=== PATIENT | male | born 1965 | race Caucasian/White ===

== ENCOUNTER 2021-07-04 08:59 | Emergency (ER) | payer OTHER ==
[~2021-07-04] VITALS: Ht 172.7 cm; Wt 81.6 kg
[2021-07-04 09:16] VITALS: BP 111/78
--- NOTE | 2021-07-04 09:58 | NUR ---
Patient given written and verbal discharge instructions. Patient verbalizes understanding of instructions. Patient is ambulatory with steady gait. Refuses offer of detention placement. Patient given list of available shelters in surrounding area.
== END 2021-07-04 09:59 | disposition home or self-care (01) ==
LOC: ER 09:05
DX: G89.29 Other chronic pain (principal); M54.9 Dorsalgia, unspecified; J45.909 Unspecified asthma, uncomplicated; Z90.89 Acquired absence of other organs; Z88.0 Allergy status to penicillin; Z59.00 Homelessness unspecified; Z87.891 Personal history of nicotine dependence

== ENCOUNTER 2021-07-06 15:32 | Emergency (ER) | payer OTHER ==
[~2021-07-06] VITALS: Ht 180.3 cm; Wt 79.4 kg
--- NOTE | 2021-07-06 15:38 | NUR ---
To ER bed 14, [id number], from street, wandering around, "hungry", aaox3, breathing even and non labored, connected to monitor, made comfortable, food given
[2021-07-06 16:11] LABS: BASOPHILS # (AUTO) 0.2 K/uL (0.0-0.2); BASOPHILS % (AUTO) 2.8 % (0.0-2.0); HEMATOCRIT 37 % (39-51); HEMOGLOBIN 12.3 g/dL (13.5-17.5); LYMPHOCYTES # (AUTO) 1.2 K/uL (0.8-4.8); LYMPHOCYTES % (AUTO) 15.3 % (20.0-44.0); MEAN CORPUSCULAR HGB CONC 33 g/dl (31.0-36.0); MEAN CORPUSCULAR VOLUME 98 fL (80-96); MONOCYTES # (AUTO) 0.5 K/uL (0.1-1.30); MONOCYTES % (AUTO) 6.2 % (2.0-12.0); NEUTROPHILS # (AUTO) 5.9 K/uL (1.8-8.9); NEUTROPHILS % (AUTO) 74.7 % (43.0-81.0); PLATELET COUNT (AUTO) 255 K/uL (150-450); RED BLOOD CELL COUNT(AUTO) 3.82 MIL/uL (4.5-6.0); WHITE BLOOD COUNT (AUTO) 7.9 K/uL (4.3-11.0)
[2021-07-06 16:24] LABS: CALCIUM, SERUM 8.3 mg/dL (8.5-10.1); CARBON DIOXIDE 27 mmol/L (21-32); CHLORIDE 106 mmol/L (98-107); GLUCOSE 93 mg/dL (74-106); POTASSIUM 3.6 mmol/L (3.5-5.1); SODIUM SERUM 144 mmol/L (136-145); UREA NITROGEN, BLOOD 14 mg/dL (7-18)
[2021-07-06] MEDS ORDERED: LORAZEPAM INJ 2 MG/ML VIAL IM ONE (16:30)
[2021-07-06] MEDS ORDERED: LORAZEPAM INJ 2 MG/ML VIAL ONE (16:33)
[2021-07-06 16:37] LABS: ALANINE AMINOTRANSFERASE 23 U/L (12-78); ALBUMIN 3.6 g/dL (3.4-5.0); ALKALINE PHOSPHATASE 57 U/L (46-116); ASPARTATE AMINOTRANSFERASE 15 U/L (15-37); BILIRUBIN,DIRECT 0.2 mg/dL (0.0-0.2); BILIRUBIN,TOTAL 0.6 mg/dL (0.2-1.0); TOTAL PROTEIN, SERUM 7.2 g/dL (6.4-8.2)
[2021-07-06 16:40] LABS: ACETAMINOPHEN < 0 ug/ml (10-30); ALCOHOL, BLOOD < 3 mg/dL (0-0)
[2021-07-06 18:57] VITALS: BP 118/77
--- NOTE | 2021-07-06 18:58 | NUR ---
Patient given written and verbal discharge instructions. Patient verbalizes understanding of instructions. Patient is ambulatory with steady gait. Refuses offer of retirement placement. Patient given list of available shelters in surrounding area.
== END 2021-07-06 18:58 | disposition home or self-care (01) ==
LOC: ER 15:36
DX: R07.89 Other chest pain (principal); Z76.5 Malingerer [conscious simulation]; J45.909 Unspecified asthma, uncomplicated; Z90.89 Acquired absence of other organs; Z88.0 Allergy status to penicillin; Z87.891 Personal history of nicotine dependence; Z59.00 Homelessness unspecified
CPT/HCPCS: 36415; 80048; 80076; 80143; 80320; 84484; 85025; 93005; 96372; 99284; J2060; G0480

== ENCOUNTER 2021-07-18 13:31 | Emergency (ER) | payer OTHER ==
[~2021-07-18] VITALS: Ht 172.7 cm; Wt 82.6 kg
[2021-07-18 14:04] VITALS: BP 133/84
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
--- NOTE | 2021-07-18 15:08 | NUR ---
X-RAY TECH AT THE BEDSIDE
[2021-07-18] MEDS ORDERED: IBUP-1953 PO (18:19)
--- NOTE | 2021-07-18 18:26 | NUR ---
Patient given written and verbal discharge instructions. Patient verbalizes understanding of instructions. Patient is ambulatory with steady gait. Refuses offer of [facility] placement. Patient given list of available shelters in surrounding area.
== END 2021-07-18 18:28 | disposition home or self-care (01) ==
LOC: ER 13:42
DX: M43.16 Spondylolisthesis, lumbar region (principal); J45.909 Unspecified asthma, uncomplicated; F17.210 Nicotine dependence, cigarettes, uncomplicated; Z90.89 Acquired absence of other organs; Z88.0 Allergy status to penicillin; Z59.00 Homelessness unspecified; Y08.89XA Assault by other specified means, initial encounter; Y93.89 Activity, other specified; Y92.89 Other specified places as the place of occurrence of the external cause; Y99.8 Other external cause status
CPT/HCPCS: 71100-TC; 72074-TC; 72110-TC

== ENCOUNTER 2021-11-18 15:42 | Emergency (ER) | payer OTHER ==
[~2021-11-18] VITALS: Ht 172.7 cm; Wt 81.6 kg
[~2021-11-18 15:42] MED LIST: IBUP-1953 PO
[2021-11-18 15:54] VITALS: BP 117/58
[2021-11-18] MEDS ORDERED: predniSONE 20 MG TABLET PO ONE (16:30)
[2021-11-18] MEDS ORDERED: IPRATROPIUM NEB FS 0.5 MG/2.5 ML AMPUL.NEB NEB ONE (16:30)
[2021-11-18] MEDS ORDERED: ALBUTEROL FS 2.5 MG/3 ML VIAL.NEB NEB ONE (16:30)
[2021-11-18] MEDS ORDERED: predniSONE 20 MG TABLET ONE (16:36)
[2021-11-18] MEDS ORDERED: ALBUTEROL FS 2.5 MG/3 ML VIAL.NEB ONE (16:41)
[2021-11-18] MEDS ORDERED: IPRATROPIUM NEB FS 0.5 MG/2.5 ML AMPUL.NEB ONE (16:41)
--- NOTE | 2021-11-18 17:00 | NUR ---
verbalized he feels better after breathing treatment
--- NOTE | 2021-11-18 17:10 | NUR ---
patient said for no reason "you guys have a kodak mouse operation here" and walked out the door
== END 2021-11-18 17:19 | disposition left against medical advice (07) ==
LOC: ER 15:50
DX: J45.901 Unspecified asthma with (acute) exacerbation (principal); F17.200 Nicotine dependence, unspecified, uncomplicated; Z93.0 Tracheostomy status; Z90.49 Acquired absence of other specified parts of digestive tract; Z88.0 Allergy status to penicillin; Z59.00 Homelessness unspecified; Z79.1 Long term (current) use of non-steroidal anti-inflammatories (NSAID)
CPT/HCPCS: 94640; 99283; 99406; J7512

== ENCOUNTER 2021-12-22 09:27 | Emergency (ER) | payer OTHER ==
[~2021-12-22] VITALS: Ht 172.7 cm; Wt 79.8 kg
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
--- NOTE | 2021-12-22 09:42 | NUR ---
called security for wanding.
[2021-12-22 10:34] VITALS: BP 121/68
--- NOTE | 2021-12-22 10:34 | NUR ---
Patient discharged to home in stable condition. Written and verbal after care instructions given. Patient verbalizes understanding of instruction. Patient provided with a bus pass.
== END 2021-12-22 10:35 | disposition home or self-care (01) ==
LOC: ER 09:34
DX: R46.1 Bizarre personal appearance (principal); J45.909 Unspecified asthma, uncomplicated; Z59.00 Homelessness unspecified; Z90.89 Acquired absence of other organs; Z93.0 Tracheostomy status; Z88.0 Allergy status to penicillin; Z79.1 Long term (current) use of non-steroidal anti-inflammatories (NSAID)

== ENCOUNTER 2021-12-24 10:24 | Emergency (ER) | payer OTHER ==
[~2021-12-24] VITALS: Ht 172.7 cm; Wt 77.1 kg
--- NOTE | 2021-12-24 10:27 | NUR ---
[id number] COUNT INCLUDES THE [facility] C/O BILATERAL FOOT PAIN D/T WOUNDS x 6DAYS, PS 04/06.
[2021-12-24] MEDS ORDERED: BACITRACIN ZINC OINT PACKET 1 EA PACKET TP ONE (11:00)
[2021-12-24] MEDS ORDERED: IBUP-1955 PO (11:36)
[2021-12-24] MEDS ORDERED: NEOM28.36 TP (11:36)
--- NOTE | 2021-12-24 11:59 | NUR ---
Patient discharged to home in stable condition. Written and verbal after care instructions given. Patient verbalizes understanding of instruction.
[2021-12-24 12:00] VITALS: BP 121/87
== END 2021-12-24 12:01 | disposition home or self-care (01) ==
LOC: ER 10:29
DX: M79.671 Pain in right foot (principal); M79.672 Pain in left foot; F17.210 Nicotine dependence, cigarettes, uncomplicated; I10 Essential (primary) hypertension; J45.909 Unspecified asthma, uncomplicated; F20.0 Paranoid schizophrenia; Z59.00 Homelessness unspecified; Z90.89 Acquired absence of other organs; Z88.0 Allergy status to penicillin; Z88.5 Allergy status to narcotic agent

== ENCOUNTER 2021-12-26 19:57 | Emergency (ER) | payer OTHER ==
[~2021-12-26] VITALS: Ht 175.3 cm; Wt 77.1 kg
[~2021-12-26 19:57] MED LIST changes: +IBUP-1955 PO; +NEOM28.36 TP
[2021-12-26] MEDS ORDERED: FLUORESCEIN SODIUM OPHTH 1 EA STRIP ONE (20:27)
[2021-12-26] MEDS ORDERED: FLUORESCEIN SODIUM OPHTH 1 EA STRIP OP ONE (20:30)
[2021-12-26 23:15] LABS: BASOPHILS % (AUTO) 0.6 % (0.0-2.0); EOSINOPHILS % (AUTO) 0.2 % (0.0-6.0); HEMATOCRIT 41 % (39-51); HEMOGLOBIN 13.6 g/dL (13.5-17.5); LYMPHOCYTES # (AUTO) 0.1 K/uL (0.8-4.8); LYMPHOCYTES % (AUTO) 2.6 % (20.0-44.0); MEAN CORPUSCULAR HGB CONC 34 g/dl (31.0-36.0); MEAN CORPUSCULAR VOLUME 90 fL (80-96); MONOCYTES # (AUTO) 0.1 K/uL (0.1-1.30); MONOCYTES % (AUTO) 3.2 % (2.0-12.0); NEUTROPHILS # (AUTO) 4.1 K/uL (1.8-8.9); NEUTROPHILS % (AUTO) 93.4 % (43.0-81.0); PLATELET COUNT (AUTO) 170 K/uL (150-450); WHITE BLOOD COUNT (AUTO) 4.4 K/uL (4.3-11.0)
[2021-12-26 23:39] LABS: ALCOHOL, BLOOD < 3 mg/dL (0-0); CALCIUM, SERUM 8.2 mg/dL (8.5-10.1); CARBON DIOXIDE 29 mmol/L (21-32); CHLORIDE 103 mmol/L (98-107); GLUCOSE 108 mg/dL (74-106); POTASSIUM 3.8 mmol/L (3.5-5.1); SODIUM SERUM 137 mmol/L (136-145); UREA NITROGEN, BLOOD 14 mg/dL (7-18)
[2021-12-27 08:55] VITALS: BP 100/59
== END 2021-12-27 08:55 | disposition left against medical advice (07) ==
LOC: ER 19:59
DX: S02.411A LeFort I fracture, initial encounter for closed fracture (principal); S06.9X0A Unspecified intracranial injury without loss of consciousness, initial encounter; S02.19XA Other fracture of base of skull, initial encounter for closed fracture; S02.40FA Zygomatic fracture, left side, initial encounter for closed fracture; Y04.0XXA Assault by unarmed brawl or fight, initial encounter; Y92.481 Parking lot as the place of occurrence of the external cause; F20.0 Paranoid schizophrenia; Z59.02 Unsheltered homelessness; J45.909 Unspecified asthma, uncomplicated; F17.210 Nicotine dependence, cigarettes, uncomplicated; M50.31 Other cervical disc degeneration, high cervical region; H11.421 Conjunctival edema, right eye; Z53.20 Procedure and treatment not carried out because of patient's decision for unspecified reasons; Z20.822 Contact with and (suspected) exposure to COVID-19; I10 Essential (primary) hypertension; Z88.0 Allergy status to penicillin; Z88.6 Allergy status to analgesic agent
CPT/HCPCS: 36415; 70450; 70486; 71045; 72125; 80048; 80320; 85025; 85730; 87426; 99285; C9803; G0480

== ENCOUNTER 2021-12-28 08:36 | Emergency (ER) | payer OTHER ==
[~2021-12-28] VITALS: Ht 175.3 cm; Wt 77.1 kg
[2021-12-28] MEDS ORDERED: ERYTHROMYCIN BASE OPHTH 3.5 GM TUBE OP STA (08:56)
[2021-12-28] MEDS ORDERED: IV NS 0.9% 1,000 ML BAG IV ONE (09:00)
[2021-12-28] MEDS ORDERED: ACETAMINOPHEN ES 500 MG TABLET PO ONE (09:00)
[2021-12-28] MEDS ORDERED: CEFEPIME 1 GM in IV D5W 50 ML IV ONE (09:00)
--- NOTE | 2021-12-28 09:08 | NUR ---
CALLED [facility] TRANSFER [facility] AND WAS NOTIFIED THAT THE HOSPITAL IS AT CAPACITY AND NOT ABLE TO TRANSFER THE PT TO THEIR FACILITY AT THIS TIME
--- NOTE | 2021-12-28 09:26 | NUR ---
CALLED [facility] AND WAS NOTIFIED THE FACILITIES IS AT CAPACITY
--- NOTE | 2021-12-28 09:26 | NUR ---
CALLED [facility] AND WAS NOTIFIED OF PT STATUS AND CLINICALS. ALSO FAXED CLINICALS TO FACILITY TO BE FUTHER REVIEWED. AWAITING A CALL BACK
[2021-12-28 09:36] LABS: CALCIUM, SERUM 8.4 mg/dL (8.5-10.1); CREATININE 0.9 mg/dL (0.6-1.3); POTASSIUM 3.3 mmol/L (3.5-5.1)
[2021-12-28 09:42] LABS: ALBUMIN 3.5 g/dL (3.4-5.0); BILIRUBIN,DIRECT 0.2 mg/dL (0.0-0.2); BILIRUBIN,TOTAL 0.9 mg/dL (0.2-1.0); TOTAL PROTEIN, SERUM 6.9 g/dL (6.4-8.2)
[2021-12-28 09:43] LABS: BASOPHILS % (AUTO) 0.4 % (0.0-2.0); EOSINOPHILS % (AUTO) 0.7 % (0.0-6.0); HEMATOCRIT 36 % (39-51); HEMOGLOBIN 12.3 g/dL (13.5-17.5); LYMPHOCYTES # (AUTO) 0.6 K/uL (0.8-4.8); LYMPHOCYTES % (AUTO) 16.2 % (20.0-44.0); MEAN CORPUSCULAR HGB CONC 34 g/dl (31.0-36.0); MEAN CORPUSCULAR VOLUME 89 fL (80-96); MONOCYTES # (AUTO) 0.4 K/uL (0.1-1.30); MONOCYTES % (AUTO) 11.4 % (2.0-12.0); NEUTROPHILS # (AUTO) 2.5 K/uL (1.8-8.9); NEUTROPHILS % (AUTO) 71.3 % (43.0-81.0); PLATELET COUNT (AUTO) 143 K/uL (150-450); RED BLOOD CELL COUNT(AUTO) 4.09 MIL/uL (4.5-6.0); WHITE BLOOD COUNT (AUTO) 3.5 K/uL (4.3-11.0)
[2021-12-28] MEDS ORDERED: ACETAMINOPHEN ES 500 MG TABLET ONE (10:32)
[2021-12-28] MEDS ORDERED: ERYTHROMYCIN BASE OPHTH 3.5 GM TUBE ONE (10:59)
[2021-12-28] MEDS ORDERED: VANCOMYCIN 1 GM in IV D5W 250 ML IV ONE (11:00)
--- NOTE | 2021-12-28 11:05 | NUR ---
SEEN THIS 56YO/MALE PATIENT. PATIENT CAME SINCE 0850H BIB RA 860 FOR WORSENING FACIAL SWELLING, LEFT AMA YESTERDAY, REFUSED TO WAIT. FOR ACCEPTANCE FOR HIGHER LEVEL OF CARE TRANSFER. PATIENT IS ALERT, ORIENTED X3. WITH FACIAL SWELLING. WITH IV CANNULA G20 ON RIGHT HAND RUNNING IS 0.9NS [place] AND VANCOMYCIN ANTIBIOTIC. PER RN TERENCE, EYE OINTMENT ALREADY APPLIED TO EYES.
--- NOTE | 2021-12-28 11:29 | NUR ---
CALLED [facility] AND WAS FAXED PT CLINICALS AT [phone]. AWAITING FEEDBACK AFTER CLINICAL PACKET HAS BEEN REVIEWED
--- NOTE | 2021-12-28 12:14 | NUR ---
URINE SPECIMEN SENT TO LAB
--- NOTE | 2021-12-28 12:30 | NUR ---
LUNCH SERVED WITH APPROVAL FROM DR LLOYD
--- NOTE | 2021-12-28 18:29 | NUR ---
COVID ANTIGEN SWAB SENT TO LAB
--- NOTE | 2021-12-28 21:20 | NUR ---
SPOKE WITH BAYRON AT [facility] ER. REQUESTED TO FAX OVER CLINICALS TO [phone]
--- NOTE | 2021-12-28 21:49 | NUR ---
[facility] CALLED BACK TO INFORM THAT THEY WONT BE ABLE TO ACCEPT THE PATIENT BECAUSE THEY DONT HAVE A MAXILLOFACIAL SURGEON.
--- NOTE | 2021-12-28 22:50 | NUR ---
CALLED [facility] AND SPOKE WITH BRENT FROM [facility] A HIGHER LEVEL OF CARE. UNABLE TO TAKE PT D/T HOSPITAL IS AT CAPACITY
--- NOTE | 2021-12-29 02:34 | NUR ---
CALLED [facility] TRANSFER [facility]ENTER TO REQUEST HIGHER LEVEL OF CARE. HOSPITAL IS AT CAPACITY AND WONT BE ABLE TO TAKE THE PATIENT.
--- NOTE | 2021-12-29 02:58 | NUR ---
CALLED [facility] AND SPOKE WITH TRAUMA SURGEON, DR. SHI BUT UNABLE TO TAKE PT.
--- NOTE | 2021-12-29 05:06 | NUR ---
PT IN BED WATCHING TV. PT PROVIDED WITH CARE AND NEED ATTENDED.
[2021-12-29] MEDS ORDERED: IV LR 1000 ML 1,000 ML IV ONE (08:00)
[2021-12-29] MEDS ORDERED: VANCOMYCIN 1 GM in IV D5W 250 ML IV ONE (08:00)
[2021-12-29] MEDS ORDERED: CEFEPIME 2 GM in IV D5W 100 ML IV SCH (09:00)
[2021-12-29] MEDS ORDERED: CEFEPIME 2 GM in IV D5W 100 ML IV ONE (09:28)
--- NOTE | 2021-12-29 11:43 | NUR ---
CALLED [facility] [phone] PAMELA WILL FAX OVER FACE SHEET. [phone]
--- NOTE | 2021-12-29 11:59 | NUR ---
CALLED [facility] [phone] LEFT .
[2021-12-29] MEDS ORDERED: ERYTHROMYCIN BASE OPHTH 3.5 GM TUBE OP SCH ×2 (12:00→18:23)
--- NOTE | 2021-12-29 12:23 | NUR ---
[facility] CALLED [facility] NO CAPACITY AT THIS TIME.
--- NOTE | 2021-12-29 12:26 | NUR ---
CALLED [facility] [phone]
--- NOTE | 2021-12-29 13:20 | NUR ---
CALLED [facility] ER [phone] TRAUMA DRGema ASKED TO BE CALLED BACK IN 15 MINS.
--- NOTE | 2021-12-29 14:00 | NUR ---
EYE OINTMENT APPLIED TO BOTH EYES
[2021-12-29] MEDS ORDERED: ERYTHROMYCIN BASE OPHTH 3.5 GM TUBE ONE (14:11)
--- NOTE | 2021-12-29 16:49 | NUR ---
CALLED [facility] SPOKE WITH DEB. [facility] CLINICALS TO [phone]
--- NOTE | 2021-12-29 17:01 | NUR ---
CALLED [facility] DR. PLEITEZ [phone] FROM [facility] SPEAKING WITH DR. LLOYD
--- NOTE | 2021-12-29 17:08 | NUR ---
CALLED [facility] [phone] [facility] [address] PATTERSON ACCEPTED. CHARGE NURSE MANUEL HELMS GETTING REPORT FROM SHEYLA TORRES.
--- NOTE | 2021-12-29 17:35 | NUR ---
[facility] CALLED FOR TRANSPORT ETA 90 MINS PER KALPES[facility].
--- NOTE | 2021-12-29 17:56 | NUR ---
REPORT GIVEN TO SHEYLA JACKSON AT [facility].
[2021-12-29 19:30] VITALS: BP 110/75
--- NOTE | 2021-12-29 19:30 | NUR ---
REPORT GIVEN TO [facility]. PATIENT WILL BE TRANSFERING TO [facility].
--- NOTE | 2021-12-29 19:30 | NUR ---
PT PICKED UP BY [facility]. ALL BELONGINGS TRANSPORTED WITH PATIENT. V/S WNL.
--- NOTE | 2022-01-10 10:36 | NUR ---
ADDENDUM 1000ML NORMAL SALINE GIVEN AT 1041 ON R HAND 20G END TIME 1141.
== END 2021-12-29 19:43 | disposition short-term general hospital (02) ==
LOC: ER 08:39
DX: S02.411A LeFort I fracture, initial encounter for closed fracture (principal); Y04.2XXA Assault by strike against or bumped into by another person, initial encounter; Y92.89 Other specified places as the place of occurrence of the external cause; H11.31 Conjunctival hemorrhage, right eye; Y99.8 Other external cause status; Z59.00 Homelessness unspecified; S02.40FA Zygomatic fracture, left side, initial encounter for closed fracture; S02.85XA Fracture of orbit, unspecified, initial encounter for closed fracture; Z20.822 Contact with and (suspected) exposure to COVID-19; E87.6 Hypokalemia; D72.819 Decreased white blood cell count, unspecified; D64.9 Anemia, unspecified; D69.6 Thrombocytopenia, unspecified; F17.210 Nicotine dependence, cigarettes, uncomplicated; Z88.6 Allergy status to analgesic agent; Z88.0 Allergy status to penicillin; F20.0 Paranoid schizophrenia; J45.909 Unspecified asthma, uncomplicated; S05.71XA Avulsion of right eye, initial encounter; I10 Essential (primary) hypertension
CPT/HCPCS: 36415; 70450; 70486; 80048; 80076; 80307; 82550; 82553; 85025; 85730; 87040 ×2; 87426; 96361; 96365; 96367; 96368; 99285; C9803; J0692; J3370 ×2; J7060; J7120

== ENCOUNTER 2025-02-18 07:58 | Emergency (ER) | payer OTHER ==
[~2025-02-18] VITALS: Ht 172.7 cm; Wt 70.8 kg
[2025-02-18 08:08] VITALS: BP 105/68; TEMP 98.2
[2025-02-18] MEDS ORDERED: CEPH-570 PO (08:35)
[2025-02-18] MEDS ORDERED: DOXY-326 PO (08:35)
[2025-02-18 08:53] VITALS: O2SAT 97
== END 2025-02-18 08:54 | disposition home or self-care (01) ==
LOC: ER 08:08
DX: S81.831A Puncture wound without foreign body, right lower leg, initial encounter (principal); F17.210 Nicotine dependence, cigarettes, uncomplicated; F20.0 Paranoid schizophrenia; I10 Essential (primary) hypertension; J45.909 Unspecified asthma, uncomplicated; Z59.00 Homelessness unspecified; Z88.0 Allergy status to penicillin; Z88.5 Allergy status to narcotic agent; Z87.09 Personal history of other diseases of the respiratory system; Z48.00 Encounter for change or removal of nonsurgical wound dressing; X58.XXXA Exposure to other specified factors, initial encounter; Y93.89 Activity, other specified; Y92.89 Other specified places as the place of occurrence of the external cause; Y99.8 Other external cause status